=== PATIENT | male | born 1970 | race Caucasian/White ===

== ENCOUNTER 2024-05-29 15:06 | Observation (INO) | payer OTHER, SELFPAY ==
[2024-05-29] VITALS (15 sets, daily range): BP systolic 103–153; BP diastolic 59–104; PULSE 60–66; RESP 12–25; TEMP 36.5–36.6; O2SAT 95–100; BMI 33.1
--- NOTE | 2024-05-29 16:09 | CT_ITS ---
STUDY: CT ABDOMEN AND PELVIS WITH CONTRAST REASON FOR EXAM: Male, 53 years old. abd pain RADIATION DOSAGE (If Supplied By Facility): CTDIvol = ( 19.94 ) mGy, DLP = ( 1304.67 ) mGycm TECHNIQUE: Transaxial images were obtained from the dome of the diaphragm to the symphysis pubis without oral contrast. IV 100mL Isovue-370 was administered. Sagittal and coronal images were reconstructed. Individualized dose optimization techniques were used for this CT. The protocol utilizes one or more of the following dose reduction techniques: automated exposure control, adjustment of mA and/or kV according to patient size,and/or use of iterative reconstruction technique. COMPARISON: None. FINDINGS: The visualized lung bases are unremarkable. The visualized portions of the heart are within normal limits. Normal liver. Normal gallbladder and extrahepatic biliary system. Normal spleen. Normal pancreas. Normal bilateral adrenal glands. Multiple simple right renal cysts measuring up to 2.6 cm on the right. No further follow-up required as appears simple/benign. Normal left kidney. Moderate hiatal hernia. Multiple air-fluid levels throughout the small bowel. Increased stool throughout the colon. The appendix is visualized and appears normal. Normal abdominal aorta. Normal inferior vena cava. Normal retroperitoneum. Normal urinary bladder. [Arthroplasty causing local beam hardening artifact and image degradation. Normal abdominal wall. Normal osseous structures. CT/Abdomen/Pelvis W IV Cont ONLY IMPRESSION: Ileus. Increase stool. Moderate hiatal hernia. Electronically Signed: Pierre Camargo MD at 17:31 EST ,
[2024-05-29] MEDS: Ondansetron 4 MG/2 ML Vial IV (16:27)
[2024-05-29] MEDS: morphine 8 MG/ML Syringe 6 MG IV (16:27)
[2024-05-29] MEDS: 0.9% Normal Saline (1000mL) 1,000 ML 999 ML IV (16:32)
[2024-05-29 16:44] LABS: Absolute Lymphocyte Count 1.63 X10^3/uL (0.83-4.51); Absolute Neutrophil Count 8.8 X10^3/uL (2.0-7.7); Basophil# 0.05 X10^3/uL; Basophil% 0.5 % (0-1); Eosinophil# 0.01 X10^3/uL; Eosinophils% 0.1 % (0-5); Hematocrit 38.8 % (40-54); Hemoglobin 12.9 g/dL (13.0-16.5); Lymphocyte # 1.63 X10^3/ul (0.83-4.51); Lymphocyte % 14.7 % (19-41); Mean Corp Hgb Conc 33.2 g/dL (32-36); Mean Corpuscular Hgb 27.2 pg (27.0-32.0); Mean Corpuscular Volume 81.9 fL (80-94); Mean Platelet Vol. 9.4 fl (6.2-12.0); Monocyte# 0.58 X10^3/uL; Monocyte% 5.2 % (0-10); NRBC Flagged by Analyzer 0 % (0-5); Neutrophil % 79.3 % (47-70); Platelet Count 328 K/mm3 (150-450); RBC Distribution Width CV 13.7 % (11.6-14.6); RBC Distribution Width SD 40.1 fl (35.1-43.9); Red Blood Count 4.74 M/mm3 (4.6-6.2); White Blood Count 11.1 K/mm3 (4.4-11.0)
[2024-05-29 17:01] LABS: ALB/GLOB Ratio 1.1 RATIO (0.9-2.4); AST(SGOT) 22 U/L (15-37); Alanine Aminotransfer ALT/SGPT 32 U/L (16-61); Albumin, Serum 4.1 g/dL (3.2-5.0); Alkaline Phosphatase 93 U/L (45-117); Anion Gap 12 (5-15); BUN 16 mg/dL (7-18); BUN/Creat Ratio 16.3 RATIO (10-20); Calcium,Total 9.1 mg/dL (8.5-10.1); Chloride 103 mmol/L (98-107); Creatinine, Serum 0.98 mg/dL (0.70-1.30); EST Glomerular Filtration Rate 85 mL/min (>60); Est Glom Filt Rate - Afr Amer 103 mL/min (>60); Globulin 3.9 g/dL (2.2-4.2); Glucose 108 mg/dL (74-106); Lipase 48 U/L (13-75); Potassium 3.5 mmol/L (3.5-5.1); Sodium Level 135 mmol/L (136-145)
[2024-05-29 17:09] LABS: Lactic Acid 1.7 mmol/L (0.4-1.9)
--- NOTE | 2024-05-29 17:16 | EX.ED.DYSGE1 ---
HPI History of Present Illness Chief Complaint: Flank Pain Informant: patient Narrative Narrative: Patient is a 53-year-old male presenting with worsening abdominal pain. 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 He then tried to walk it off and went to work. He was okay for couple hours which is more of a mild pain but then the pain started to move more to his abdomen and significantly worsened. He is not having severe diffuse abdominal cramping and not so much having this flank pain. He has associated nausea with chills. Did try taking ibuprofen with no significant relief. Does not report a history of constipation that is chronic and unchanged. His last bowel movement was about 3 days ago. Denies any history of diverticulitis or kidney stones. Denies any associated chest pain or shortness of breath. Denies any fevers. Denies any radiation of pain into his legs, back or groin/testicles. Denies any urinary symptoms. Denies any history of anything like this before. Does have a history of a ventral hernia repair laparoscopic. PFSH [facility] Home Medications ?Medication ?Instructions ?Recorded ?Last Taken ?Type NK 05/29/24 Unknown History Allergy/AdvReac Type Severity Reaction Status Date / Time No Known Allergies Allergy Verified 05/29/24 17:19 Surgical History History of hip replacement History of hernia surgery Social History Smoking Status: Never smoker ROS [facility] ED Constitutional Constitutional ED: Reports sweats; Denies chills or fever(s) ENT ENT ED: Reports rhinorrhea and sore throat Cardiovascular Cardiovascular: Denies chest pain Respiratory/Chest Respiratory/Chest: Reports cough Gastrointestinal Gastrointestinal: Denies diarrhea or vomiting Neurologic Neurologic: Denies headache(s) EXAM Physical Exam Const Vital Signs: 05/29/24 15:06 05/29/24 17:12 05/29/24 17:30 Temperature 97.7 F L Temperature Source Temporal Pulse Rate 61 63 66 Respiratory Rate 16 22 H 15 Blood Pressure 134/59 H 130/88 H Blood Pressure Mean 84 101 Pulse Ox 100 100 100 Oxygen Delivery Method Room Air Room Air 05/29/24 18:00 05/29/24 18:15 05/29/24 18:30 Temperature Temperature Source Pulse Rate 66 60 64 Respiratory Rate 25 H 12 20 H Blood Pressure 130/66 H 153/102 H 139/70 H Blood Pressure Mean 86 116 91 Pulse Ox 100 Oxygen Delivery Method 05/29/24 18:45 05/29/24 19:00 05/29/24 19:15 Temperature Temperature Source Pulse Rate 64 64 63 Respiratory Rate 14 18 22 H Blood Pressure 137/85 H 136/86 H 135/80 H Blood Pressure Mean 99 101 95 Pulse Ox 96 Oxygen Delivery Method 05/29/24 19:30 05/29/24 19:45 05/29/24 21:00 Temperature Temperature Source Pulse Rate 65 62 64 Respiratory Rate 15 20 H 17 Blood Pressure 119/69 123/104 H 107/60 Blood Pressure Mean 76 112 75 Pulse Ox 98 Oxygen Delivery Method 05/29/24 22:00 05/29/24 23:00 Temperature Temperature Source Pulse Rate 60 63 Respiratory Rate 17 16 Blood Pressure 103/67 113/71 Blood Pressure Mean 79 85 Pulse Ox 95 98 Oxygen Delivery Method Positive well nourished and well developed General Appearance ED: well developed and NAD HEENT Reports TM's clear and moist mucous membranes Tympanic Membrane ED: Yes TM's clear Neck supple Resp normal respiratory effort and clear to auscultation bilaterally Cardio regular rate and regular rhythm GI GI Narrative: Mildly distended abdomen. Nonperitoneal. Pain does not localize. Pain is out of proportion to exam. No pulsatile mass appreciated. Auscultation: hypoactive bowel sounds Back/Spine no CVA tenderness Extremity normal to inspection Extremity Narrative: 2+ DP pulses. 2+ radial pulses. General Extremety ED: Negative for edema General Extremity: Negative for edema Neuro oriented x3 Sensorium / Orientation: alert Motor Exam: Negative for general weakness Psych mental status grossly normal Mood & Affect: anxious Skin no rashes or lesions noted and no wounds MDM MDM MDM Narrative Medical decision making narrative: Patient is evaluated for abdominal pain. Initially had some left-sided flank pain but then localized to the abdomen. Differential includes SBO, renal colic, diverticulitis, musculoskeletal pain, AAA, ischemic colitis, illness and volvulus. Vital signs normal the emergency room. Patient initially is given 6 mg IV morphine and 4 mg IV Zofran as well as fluids for symptoms. Lab including CBC, CMP, lipase, urinalysis and lactate largely normal. He has a mild leukocytosis of 11.1 but no shift. Kidney function is normal. Urinalysis is not consistent with infection. Lipase is normal. CT of the abdomen pelvis shows ileus with increased stool and multiple air-fluid levels throughout the small bowel. Case discussed with surgeon on-call, Dr. Dominguez. He reviewed the films. Questions if there could be a focal area of colitis and sigmoid colon. Recommended repeat CT with oral contrast. Patient did require repeat pain medication with morphine 8 mg and further nausea medicine (is given Compazine). Continues to have pain is then given 1 mg Dilaudid, simethicone and Bentyl. He finally has improvement of his symptoms. Repeat CT continues to show an ileus. No comment on colitis again. Patient is afebrile in the emergency room. Would be admitted for further evaluation of ileus and bowel regiment. Is offered enema in the emergency room but declined. I will be made the medicine with consult to surgery. ON repeat exam is now pain free and resting. Lab Data Attestation: I reviewed the patient's lab results. Labs: Laboratory Results - last 24 hr 05/29/24 05/29/24 16:28 18:09 WBC 11.1 H RBC 4.74 Hgb 12.9 L Hct 38.8 L MCV 81.9 MCH 27.2 MCHC 33.2 RDW Std Deviation 40.1 RDW Coeff of Shraddha 13.7 Plt Count 328 MPV 9.4 Immature Gran % (Auto) 0.200 Neut % (Auto) 79.3 H Lymph % (Auto) 14.7 L [place] % (Auto) 5.2 Eos % (Auto) 0.1 Baso % (Auto) 0.5 Absolute Neuts (auto) 8.8 H Absolute Lymphs (auto) 1.63 Nucleated RBC % 0 Sodium 135 L Potassium 3.5 Chloride 103 Carbon Dioxide 20.0 L Anion Gap 12 BUN 16 Creatinine 0.98 Est GFR (MDRD) Af Amer 103 Est GFR (MDRD) Non-Af 85 BUN/Creatinine Ratio 16.3 Glucose 108 H Lactic Acid 1.7 Calcium 9.1 Total Bilirubin 0.40 AST 22 ALT 32 Alkaline Phosphatase 93 Total Protein 8.0 Albumin 4.1 Globulin 3.9 Albumin/Globulin Ratio 1.1 Lipase 48 Urine Color Yellow Urine Clarity Clear Urine pH 7.0 Ur Specific [place] 1.005 Urine Protein 15 H Urine Glucose (UA) Normal Urine Ketones 15 H Urine Occult Blood 10 H Urine Nitrite Negative Urine Bilirubin Negative Urine Urobilinogen Normal Ur Leukocyte Esterase Negative Urine RBC 0-5 SEEN Urine WBC 0 SEEN Ur Squamous Epith Cells 0 SEEN Urine Bacteria 0 SEEN Urine Mucus 1+ Radiography Diagnostic Testing: Clinical Impression(s) from Imaging Studies Abdomen/Pelvis CT 05/29/24 16:09 IMPRESSION: Ileus. Increase stool. Moderate hiatal hernia. Electronically Signed: Pierre Camargo MD at 17:31 EST Reading Location ID and State: [address] [place] [address] Tel , Service support , Abdomen CT 05/29/24 19:04 IMPRESSION: Ileus. Increase stool in the colon. 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
[2024-05-29] MEDS: proCHLORPERazine 10 MG/2 ML Vial 5 MG IV (17:24)
[2024-05-29] MEDS: morphine 8 MG/ML Syringe IV (17:25)
[2024-05-29 18:13] LABS: Bacteria 0 SEEN /hpf (None Seen); Squamous Epithelial Cells - UA 0 SEEN /hpf (0-5); White Blood Cells 0 SEEN /hpf (0-5)
[2024-05-29 18:25] LABS: Color, Urine Yellow (Yellow); Glucose, Dipstick Normal (Normal); Ketone-Dipstick 15 mg/dl (Negative); Leukocyte Esterase-Dipstick Negative /ul (Negative); Nitrite-Dipstick Negative (Negative); Occult Blood-Urine 10 /ul (Negative); Protein-Dipstick 15 mg/dl (Negative); Specific Gravity, Urine 1.005 (1.002-1.030); Urine Bilirubin Dipstick Negative (Negative); Urine Clarity Clear (Clear); Urine Urobilinogen Normal (Normal)
[2024-05-29] MEDS: Dicyclomine 10 MG Capsule 20 MG PO (18:42)
[2024-05-29] MEDS: HYDROmorphone 1 MG/ML Syringe IV (18:42)
[2024-05-29 18:49] LABS: Mucous, Urine 1+ /hpf (<or=2+); Red Blood Cells-Urine 0-5 SEEN /hpf (0-5)
--- NOTE | 2024-05-29 19:04 | CT_ITS ---
STUDY: CT ABDOMEN AND PELVIS WITHOUT CONTRAST REASON FOR EXAM: Male, 53 years old. ? ilius vs colitis sigmoid RADIATION DOSAGE (If Supplied By Facility): CTDIvol = ( 15.02 ) mGy, DLP = ( 923.13 ) mGycm TECHNIQUE: Transaxial images were obtained from the dome of the diaphragm to the symphysis pubis without oral contrast, and without intravenous contrast. Sagittal and coronal images were reconstructed. Individualized dose optimization techniques were used for this CT. The protocol utilizes one or more of the following dose reduction techniques: automated exposure control, adjustment of mA and/or kV according to patient size,and/or use of iterative reconstruction technique. COMPARISON: CT abdomen and pelvis 05/29/2024 4:43 PM today FINDINGS: The visualized lung bases are unremarkable. Calcific coronary artery disease. Normal liver. Normal gallbladder and extrahepatic biliary system. Normal spleen. Normal pancreas. Normal bilateral adrenal glands. Normal right kidney. Normal left kidney. Bilateral contrast noted in the collecting systems. Oral contrast noted in the stomach. Small hiatal hernia. Oral contrast noted in the proximal small bowel. Air-fluid levels noted distally. Increased stool throughout the colon. The appendix is visualized and appears normal. Normal abdominal aorta. Normal inferior vena cava. Normal retroperitoneum. Urinary bladder is not filled with intravenous contrast. Anterior abdominal wall mesh periumbilical region and fat-containing umbilical hernia. Right total hip arthroplasty. CT/Abdomen/Pel W ORAL Cont Only IMPRESSION: Ileus. Increase stool in the colon. Electronically Signed: Pierre Camargo MD at 22:28 EST ,
[2024-05-29] MEDS: SimETHICONE 80 MG Chewable Tablet PO (19:59)
--- NOTE | 2024-05-29 23:04 | HP.PCM.HOS_ITS ---
HPI - General General Date of Admission: 05/29/24 Date of Service: 05/29/24 Chief Complaint: Abdominal pain, cramping. 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 He did have nausea previous to ED presentation but upon evaluation he did note while in the ED had 1 bout of emesis. He does note decreased flatus over the last day or so. In the ED upon evaluation patient notes he is feeling improved with abdomen soft and no tenderness to palpation of note. Workup in the ED included T97.7, heart rate 61, BP 134/59, respiratory rate 16, 100% on room air with most recent repeat vitals heart rate 64, BP 107/60, respiratory rate 17, 98% on room air, CBC with WC 11.1, hemoglobin 12.9, MCV 81.9, platelet 328 with left shift, CMP with sodium 135, come back side 20 otherwise not marked appearing, glucose 108, lactic acid 1.7, hepatic profile unremarkable, urinalysis with no obvious evidence of any UTI, CT abdomen and pelvis with contrast with evidence of AV ileus with increased stool and evidence of a moderate hiatal hernia with follow-up abdominal CT without contrast with increased on the colon and evidence of ileus. In the ED patient administered simethicone, prochlorperazine, Zofran, morphine 8 mg x 1, morphine 6 mg x 2, Dilaudid 1 mg IV x 1, dicyclomine 20 mg p.o. x 1 and 1 L normal saline. [facility] Medical History Obesity Chronic constipation Home Medications ?Medication ?Instructions ?Recorded ?Last Taken ?Type NK 05/29/24 Unknown History Allergy/AdvReac Type Severity Reaction Status Date / Time No Known Allergies Allergy Verified 05/29/24 17:19 Family History Mother Heart disease Kidney disease Father Heart disease Kidney disease adopted Surgical History H/O umbilical hernia repair History of inguinal hernia repair History of total replacement of right hip History of hip replacement History of hernia surgery Social History household members: spouse Smoking Status: Never smoker alcohol intake: never substance use type: does not use ROS ROS Narrative Admission Review of Systems: CONSTITUTIONAL: No weight loss, fever, chills, + weakness or fatigue. HEENT: Eyes: No visual loss, blurred vision, double vision or yellow sclerae. Ears, Nose, Throat: No hearing loss, sneezing, congestion, runny nose or sore throat. SKIN: No rash or itching, lesions, wounds. CARDIOVASCULAR: No chest pain, chest pressure or chest discomfort, palpitations, edema, orthopnea, syncopal events. RESPIRATORY: No shortness of breath, cough or sputum, wheezing, hemoptysis. GASTROINTESTINAL: + anorexia, nausea, vomiting, constipation, abdominal pain. No diarrhea, melena, BRBPR. GENITOURINARY: No dysuria, frequency, urgency or retention. NEUROLOGICAL: No headache, dizziness, syncope, paralysis, ataxia, numbness or tingling in the extremities, focal weakness, change in bowel or bladder control, seizure. MUSCULOSKELETAL: + muscle, back pain, joint pain or stiffness. HEMATOLOGIC: + Lab evidence of anemia, unclear chronicity. No history of easy bleeding or bruising. LYMPHATICS: No enlarged nodes. No history of splenectomy. PSYCHIATRIC: No history of depression or anxiety. ENDOCRINOLOGIC: No reports of sweating, cold or heat intolerance. No polyuria or polydipsia. ALLERGIES: No history of asthma, hives, eczema or rhinitis. Vital Signs Vital Signs Vital Signs: 05/29/24 15:06 05/29/24 17:12 05/29/24 17:30 Temperature 97.7 F L Temperature Source Temporal Pulse Rate 61 63 66 Respiratory Rate 16 22 H 15 Blood Pressure 134/59 H 130/88 H Blood Pressure Mean 84 101 Pulse Ox 100 100 100 Oxygen Delivery Method Room Air Room Air 05/29/24 18:00 05/29/24 18:15 05/29/24 18:30 Temperature Temperature Source Pulse Rate 66 60 64 Respiratory Rate 25 H 12 20 H Blood Pressure 130/66 H 153/102 H 139/70 H Blood Pressure Mean 86 116 91 Pulse Ox 100 Oxygen Delivery Method 05/29/24 18:45 05/29/24 19:00 05/29/24 19:15 Temperature Temperature Source Pulse Rate 64 64 63 Respiratory Rate 14 18 22 H Blood Pressure 137/85 H 136/86 H 135/80 H Blood Pressure Mean 99 101 95 Pulse Ox 96 Oxygen Delivery Method 05/29/24 19:30 05/29/24 19:45 05/29/24 21:00 Temperature Temperature Source Pulse Rate 65 62 64 Respiratory Rate 15 20 H 17 Blood Pressure 119/69 123/104 H 107/60 Blood Pressure Mean 76 112 75 Pulse Ox 98 Oxygen Delivery Method 05/29/24 22:00 05/29/24 23:00 Temperature Temperature Source Pulse Rate 60 63 Respiratory Rate 17 16 Blood Pressure 103/67 113/71 Blood Pressure Mean 79 85 Pulse Ox 95 98 Oxygen Delivery Method Weight Weight: 224 lb 6.889 oz Body Mass Index (BMI) 33.1 Physical Exam Narrative Physical Examination: General: Awake, alert, oriented x 3 and cooperative, laying in the ED bed, notes feeling improved since initial ED arrival, denies any pain currently. Skin: Normal color, normal turgor, no icterus, no cyanosis. HEENT: AT/NC, EOMI, PERRLA, moderately dry MM, no carotid bruits or JVD noted. Lungs: CTA bilaterally, moderate effort, mild decrease BL bases, no rales, ronchi or wheezing. Heart: Regular rate and rhythm; no gallop, rub audible. Abdomen: Soft, obese, NTTP, ND, hyperactive BS, no appreciated HSM. Extremities: No cyanosis, clubbing, or edema. Neurological: Patient awake, alert, oriented as noted, cognitive function intact; pupils equally reactive to light and accommodation, cranial nerves II- XII grossly normal, moving all 4 extremities, no focal deficits, strength improved given pain improvement, mildly global decrease Psychiatric: Affect appears fatigued otherwise normal, no acute evidence of depressive or anxiety feelings. Results Lab / Micro Data 05/29/24 16:28 05/29/24 16:28 Labs: Laboratory Results - last 24 hr 05/29/24 16:28: WBC 11.1 H, RBC 4.74, Hgb 12.9 L, Hct 38.8 L, MCV 81.9, MCH 27.2, MCHC 33.2, RDW Std Deviation 40.1, RDW Coeff of Shraddha 13.7, Plt Count 328, MPV 9.4, Immature Gran % (Auto) 0.200, Neut % (Auto) 79.3 H, Lymph % (Auto) 14.7 L, [place] % (Auto) 5.2, Eos % (Auto) 0.1, Baso % (Auto) 0.5, Absolute Neuts (auto) 8.8 H, Absolute Lymphs (auto) 1.63, Nucleated RBC % 0, Sodium 135 L, Potassium 3.5, Chloride 103, Carbon Dioxide 20.0 L, Anion Gap 12, BUN 16, Creatinine 0.98, Est GFR (MDRD) Af Amer 103, Est GFR (MDRD) Non-Af 85, BUN/Creatinine Ratio 16.3, Glucose 108 H, Lactic Acid 1.7, Calcium 9.1, Total Bilirubin 0.40, AST 22, ALT 32, Alkaline Phosphatase 93, Total Protein 8.0, Albumin 4.1, Globulin 3.9, Albumin/Globulin Ratio 1.1, Lipase 48 05/29/24 18:09: Urine Color Yellow, Urine Clarity Clear, Urine pH 7.0, Ur Specific [place] 1.005, Urine Protein 15 H, Urine Glucose (UA) Normal, Urine Ketones 15 H, Urine Occult Blood 10 H, Urine Nitrite Negative, Urine Bilirubin Negative, Urine Urobilinogen Normal, Ur Leukocyte Esterase Negative, Urine RBC 0-5 SEEN, Urine WBC 0 SEEN, Ur Squamous Epith Cells 0 SEEN, Urine Bacteria 0 SEEN, Urine Mucus 1+ Imaging Radiology Impression Abdomen/Pelvis CT 05/29/24 16:09 IMPRESSION: Ileus. Increase stool. Moderate hiatal hernia. Electronically Signed: Pierre Camargo MD at 17:31 EST , Abdomen CT 05/29/24 19:04 IMPRESSION: Ileus. Increase stool in the colon. 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 #1. Abdominal pain, nausea, emesis, possible ileus complicated by acute on chronic constipation: CT abdomen pelvis in the ED with no acute findings. ED discussed case with general surgery Dr. Dominguez given pain out of proportion and ongoing discomfort. Will admit to [facility], maintain on IVFs, following discussion and patient preference to avoid any enemas will initiate on bowel prep regimen, monitor strict I&Os, scheduled Bentyl, low-dose scheduled Toradol x 5 doses, oral/IV narcotic pain for breakthrough pain/anti-emetics PRN, maintain on IV PPI, allow clear liquids only until clinically improving, will continue general surgery consultation to be cautious. Procalcitonin requested. #2. Hyponatremia, mild, suspect hypovolemic component: Admission CMP with sodium 135, chloride 103, likely secondary to GI losses and poor intake over the course of the day given acute presentation #1, will judiciously hydrate and repeat CMP in AM. #3. Normocytic anemia: Admission hemoglobin 12.9, MCV 81.9, no previous reported history, will encourage continued outpatient follow-up and evaluation. #4. DVT prophylaxis: Low risk for type of presentation, encourage patient to be up and ambulating especially given #1. Charges/Coding Visit Charges Inpatient E&M: 58583 Init Hosp L2
[2024-05-30 00:08] LABS: Procalcitonin 0.06 ng/mL (0.00-0.09)
[2024-05-30 00:12] VITALS: BMI 32.1
[2024-05-30 00:15] VITALS: BP 114/74; PULSE 66; RESP 16; TEMP 36.9; O2SAT 95
[2024-05-30] MEDS: 0.9% Normal Saline (1000mL) 1,000 ML 100 ML IV (00:50)
[2024-05-30] MEDS: 0.9% Saline Lock 10 ML Syringe IV ×2 (00:50→01:09)
[2024-05-30] MEDS: Ketorolac 15 MG/ML Vial IV ×3 (01:09→13:55)
[2024-05-30] MEDS: Pantoprazole Sodium 40 MG in 0.9% Normal Saline (100mL MB+) 100 ML 330 MG IV ×2 (01:10→10:17)
[2024-05-30] MEDS: Bisacodyl 5 MG Tablet 20 MG PO (01:12)
[2024-05-30] MEDS: Polyethylene Glycol 3350 BOWEL PREP 1 BOTTLE PO (03:21)
[2024-05-30 05:16] VITALS: BMI 32.8
[2024-05-30 06:01] LABS: Absolute Lymphocyte Count 1.63 X10^3/uL (0.83-4.51); Absolute Neutrophil Count 5.8 X10^3/uL (2.0-7.7); Basophil# 0.03 X10^3/uL; Basophil% 0.4 % (0-1); Eosinophil# 0.01 X10^3/uL; Eosinophils% 0.1 % (0-5); Hematocrit 35.6 % (40-54); Hemoglobin 11.6 g/dL (13.0-16.5); Lymphocyte # 1.63 X10^3/ul (0.83-4.51); Mean Corp Hgb Conc 32.6 g/dL (32-36); Mean Corpuscular Volume 82.8 fL (80-94); Mean Platelet Vol. 9.4 fl (6.2-12.0); Monocyte# 0.63 X10^3/uL; Monocyte% 7.7 % (0-10); NRBC Flagged by Analyzer 0 % (0-5); Neutrophil # 5.83 X10^3/uL (2.7-7.7); Neutrophil % 71.3 % (47-70); Platelet Count 318 K/mm3 (150-450); RBC Distribution Width CV 13.8 % (11.6-14.6); RBC Distribution Width SD 41.3 fl (35.1-43.9); White Blood Count 8.2 K/mm3 (4.4-11.0)
[2024-05-30 06:26] VITALS: BP 118/63; PULSE 53; RESP 18; TEMP 36.6; O2SAT 96
[2024-05-30] MEDS: Dicyclomine 10 MG Capsule 20 MG PO ×2 (06:38→10:17)
[2024-05-30 06:51] LABS: ALB/GLOB Ratio 0.9 RATIO (0.9-2.4); AST(SGOT) 18 U/L (15-37); Alanine Aminotransfer ALT/SGPT 26 U/L (16-61); Albumin, Serum 3.1 g/dL (3.2-5.0); Alkaline Phosphatase 78 U/L (45-117); Anion Gap 7 (5-15); BUN 13 mg/dL (7-18); BUN/Creat Ratio 17.2 RATIO (10-20); Chloride 107 mmol/L (98-107); Creatinine, Serum 0.76 mg/dL (0.70-1.30); EST Glomerular Filtration Rate 115 mL/min (>60); Est Glom Filt Rate - Afr Amer 139 mL/min (>60); Estimated Creatinine Clearance 134.44 ml/min; Globulin 3.5 g/dL (2.2-4.2); Glucose 101 mg/dL (74-106); Potassium 3.6 mmol/L (3.5-5.1); Protein, Total 6.6 g/dL (6.4-8.2); Sodium Level 137 mmol/L (136-145)
--- NOTE | 2024-05-30 07:49 | EX.PCM.CON.S ---
Assessment & Plan Assessment/Plan (1) Constipation: QUALIFIERS: Constipation type: slow transit constipation Qualified Code(s): K59.01 - Slow transit constipation PLAN: I have been consulted in conjunction with Dr. Dominguez. He has independently evaluated this patient. Patient presents with a 1 day history of acute onset of abdominal pain, nausea, vomiting, fever/chills. He notes receiving pain medication in the ED, which has helped with his abdominal pain. He denies any abdominal pain upon evaluation this morning. He denies any nausea, vomiting. Patient denies passing flatus or having bowel movement. It is noted that patient has a redundant sigmoid colon. This is likely from his history of constipation. Patient has been given a bottle of Miralax to assist with bowel function. Await bowel function. Patient may follow-up with Dr. Dominguez as an outpatient in 1-2 weeks from discharge to discuss a colonoscopy. It is recommended that the patient start a daily Miralax regimen to assist with constipation. Patient has had the opportunity to ask and have questions answered. Patient verbally understands and agrees with the plan. Thank you for allowing us to participate in this patient's care. HPI Consult Data Date of Consult: 05/30/24 HPI Narrative Reason for Consultation: Constipation HPI Narrative: INES BECERRIL, is a 53 M who presents with a 1 day history of worsening abdominal pain, nausea and vomiting. Patient notes a chronic history of constipation. He notes he was at work yesterday and bent over to tie his shoe and experienced severe abdominal pain. He was concerned that something may have ruptured and prompted him to proceed to the ED. He was also noting chills and fever. He denies being around any sick contacts. Patient notes his bowel habits are abnormal. He notes having a bowel movement on average twice a week. He states he takes an herbal laxative to assist with bowel movements. He notes his bowel habit changes are associated with an herbal drink he had started to help curb the alcohol cravings. He no longer consumes alcohol. He states he has never had a colonoscopy previously. He notes being adopted, however he states he has no family history of inflammatory bowel disease or diverticulitis. He notes abdominal surgeries have been umbilical hernia repair and right groin inguina hernias x 2. He is unsure when the hernia repairs were completed and who performed the procedures. CT scan of the ab/pel was obtained demonstrating an ileus. Increased stool in the colon. Hiatal hernia. Fat-containing umbilical hernia. No acute abnormalities noted. [facility] Medical History Obesity Chronic constipation Home Medications ?Medication ?Instructions ?Recorded ?Last Taken ?Type atorvastatin 40 mg tablet 40 mg PO DAILY 05/30/24 Unknown History bupropion HCl 150 mg 24 hr tablet, 150 mg PO 1XD 05/30/24 Unknown History extended release sertraline 50 mg tablet 75 mg PO DAILY 05/30/24 Unknown History Allergy/AdvReac Type Severity Reaction Status Date / Time No Known Allergies Allergy Verified 05/29/24 17:19 Family History Mother Heart disease Kidney disease Father Heart disease Kidney disease Surgical History H/O umbilical hernia repair History of inguinal hernia repair History of total replacement of right hip History of hip replacement History of hernia surgery Social History household members: spouse Smoking Status: Never smoker alcohol intake: never substance use type: does not use ROS Constitutional Constitutional: Reports systems reviewed and no addt'l complaints, except as documented Eyes Eyes: Reports systems reviewed and no addt'l complaints, except as documented ENT HEENT: Reports systems reviewed and no addt'l complaints, except as documented Cardiovascular Cardiovascular: Reports systems reviewed and no addt'l complaints, except as documented Respiratory/Chest Respiratory/Chest: Reports systems reviewed and no addt'l complaints, except as documented Gastrointestinal Gastrointestinal: Reports systems reviewed and no addt'l complaints, except as documented Genitourinary Genitourinary: Reports systems reviewed and no addt'l complaints, except as documented Musculoskeletal Musculoskeletal: Reports systems reviewed and no addt'l complaints, except as documented Integumentary Integumentary: Reports systems reviewed and no addt'l complaints, except as documented Neurologic Neurologic: Reports systems reviewed and no addt'l complaints, except as documented Psychiatric Psychiatric: Reports systems reviewed and no addt'l complaints, except as documented Endocrine Endocrinology: Reports systems reviewed and no addt'l complaints, except as documented Hematologic/Lymphatic Hematologic/Lymphatic: Reports systems reviewed and no addt'l complaints, except as documented Allergic/Immunologic Allergic/Immunologic: Reports systems reviewed and no addt'l complaints, except as documented Physical Exam Const alert, oriented x3 and no apparent distress HEENT normocephalic and head/scalp atraumatic Eyes PERRL Neck full ROM Resp normal respiratory effort and clear to auscultation bilaterally Cardio regular rate and regular rhythm GI normal to inspection, nondistended, normoactive bowel sounds no CVA tenderness Back/Spine no CVA tenderness Extremity normal to inspection Skin no rashes or lesions noted Neuro no focal motor deficits and no sensory deficits noted Psych mental status grossly normal and thought process normal Lab / Micro Data 05/30/24 05:06 05/30/24 05:06 Labs: Laboratory Results - last 24 hr 05/29/24 16:28: WBC 11.1 H, RBC 4.74, Hgb 12.9 L, Hct 38.8 L, MCV 81.9, MCH 27.2, MCHC 33.2, RDW Std Deviation 40.1, RDW Coeff of [place]raddha 13.7, Plt Count 328, MPV 9.4, Immature Gran % (Auto) 0.200, Neut % (Auto) 79.3 H, Lymph % (Auto) 14.7 L, [place] % (Auto) 5.2, Eos % (Auto) 0.1, Baso % (Auto) 0.5, Absolute Neuts (auto) 8.8 H, Absolute Lymphs (auto) 1.63, Nucleated RBC % 0, Sodium 135 L, Potassium 3.5, Chloride 103, Carbon Dioxide 20.0 L, Anion Gap 12, BUN 16, Creatinine 0.98, Est GFR (MDRD) Af Amer 103, Est GFR (MDRD) Non-Af 85, BUN/Creatinine Ratio 16.3, Glucose 108 H, Lactic Acid 1.7, Calcium 9.1, Total Bilirubin 0.40, AST 22, ALT 32, Alkaline Phosphatase 93, Total Protein 8.0, Albumin 4.1, Globulin 3.9, Albumin/Globulin Ratio 1.1, Lipase 48 05/29/24 18:09: Urine Color Yellow, Urine Clarity Clear, Urine pH 7.0, Ur Specific [place] 1.005, Urine Protein 15 H, Urine Glucose (UA) Normal, Urine Ketones 15 H, Urine Occult Blood 10 H, Urine Nitrite Negative, Urine Bilirubin Negative, Urine Urobilinogen Normal, Ur Leukocyte Esterase Negative, Urine RBC 0-5 SEEN, Urine WBC 0 SEEN, Ur Squamous Epith Cells 0 SEEN, Urine Bacteria 0 SEEN, Urine Mucus 1+ 05/29/24 23:36: Procalcitonin 0.06 05/30/24 05:06: WBC 8.2, RBC 4.30 L, Hgb 11.6 L, Hct 35.6 L, MCV 82.8, MCH 27.0, MCHC 32.6, RDW Std Deviation 41.3, RDW Coeff of [place] 13.8, Plt Count 318, MPV 9.4, Immature Gran % (Auto) 0.500, Neut % (Auto) 71.3 H, Lymph % (Auto) 20.0, [place] % (Auto) 7.7, Eos % (Auto) 0.1, Baso % (Auto) 0.4, Absolute Neuts (auto) 5.8, Absolute Lymphs (auto) 1.63, Nucleated RBC % 0, Sodium 137, Potassium 3.6, Chloride 107, Carbon Dioxide 23.0, Anion Gap 7, BUN 13, Creatinine 0.76, Estim Creat Clear Calc 134.44, Est GFR (MDRD) Af Amer 139, Est GFR (MDRD) Non-Af 115, BUN/Creatinine Ratio 17.2, Glucose 101, Calcium 8.0 L, Total Bilirubin 0.40, AST 18, ALT 26, Alkaline Phosphatase 78, Total Protein 6.6, Albumin 3.1 L, Globulin 3.5, Albumin/Globulin Ratio 0.9 Imaging Radiology Impression Abdomen/Pelvis CT 05/29/24 16:09 IMPRESSION: Ileus. Increase stool. Moderate hiatal hernia. Electronically Signed: Pierre Camargo MD at 17:31 EST Reading Location ID and State: [address] [place] [address] Tel , Service support , Abdomen CT 05/29/24 19:04 IMPRESSION: Ileus. Increase stool in the colon. Electronically Signed: Pierre Camargo MD at 22:28 EST Reading Location ID and State: [address] [place] [address] Tel , Service support , Charges/Coding Visit Charges Inpatient E&M: 22609 Init Hosp L2
--- NOTE | 2024-05-30 08:06 | PCM.PN.HOSP ---
Reason for Visit Reason for Visit: Diagnoses Ileus, unspecified (05/29/24) Unspecified abdominal pain (05/29/24) Subjective Subjective Feeling much better. No BM yet. Objective Data Objective Data Vital Signs: Vital Signs Temp Pulse Resp BP Pulse Ox O2 Del Method 36.6 C 53 L 18 118/63 96 Room Air 05/30/24 06:26 05/30/24 06:26 05/30/24 06:26 05/30/24 06:26 05/30/24 06:26 05/30/24 06:26 Oxygen Delivery Method Room Air Weight: 100.6 kg Body Mass Index (BMI) 32.8 Intake & Output: Intake and Output for Last 24 Hours 05/28/24 05/29/24 05/30/24 23:59 23:59 23:59 Intake Total 1000 / 1000 643.33 / 643.33 Output Total 500 / 500 Balance 500 / 500 643.33 / 643.33 Lab / Micro Data 05/30/24 05:06 05/30/24 05:06 Labs: Laboratory Results - last 24 hr 05/29/24 16:28: WBC 11.1 H, RBC 4.74, Hgb 12.9 L, Hct 38.8 L, MCV 81.9, MCH 27.2, MCHC 33.2, RDW Std Deviation 40.1, RDW Coeff of Shraddha 13.7, Plt Count 328, MPV 9.4, Immature Gran % (Auto) 0.200, Neut % (Auto) 79.3 H, Lymph % (Auto) 14.7 L, [place] % (Auto) 5.2, Eos % (Auto) 0.1, Baso % (Auto) 0.5, Absolute Neuts (auto) 8.8 H, Absolute Lymphs (auto) 1.63, Nucleated RBC % 0, Sodium 135 L, Potassium 3.5, Chloride 103, Carbon Dioxide 20.0 L, Anion Gap 12, BUN 16, Creatinine 0.98, Est GFR (MDRD) Af Amer 103, Est GFR (MDRD) Non-Af 85, BUN/Creatinine Ratio 16.3, Glucose 108 H, Lactic Acid 1.7, Calcium 9.1, Total Bilirubin 0.40, AST 22, ALT 32, Alkaline Phosphatase 93, Total Protein 8.0, Albumin 4.1, Globulin 3.9, Albumin/Globulin Ratio 1.1, Lipase 48 05/29/24 18:09: Urine Color Yellow, Urine Clarity Clear, Urine pH 7.0, Ur Specific [place] 1.005, Urine Protein 15 H, Urine Glucose (UA) Normal, Urine Ketones 15 H, Urine Occult Blood 10 H, Urine Nitrite Negative, Urine Bilirubin Negative, Urine Urobilinogen Normal, Ur Leukocyte Esterase Negative, Urine RBC 0-5 SEEN, Urine WBC 0 SEEN, Ur Squamous Epith Cells 0 SEEN, Urine Bacteria 0 SEEN, Urine Mucus 1+ 05/29/24 23:36: Procalcitonin 0.06 05/30/24 05:06: WBC 8.2, RBC 4.30 L, Hgb 11.6 L, Hct 35.6 L, MCV 82.8, MCH 27.0, MCHC 32.6, RDW Std Deviation 41.3, RDW Coeff of [place]raddha 13.8, Plt Count 318, MPV 9.4, Immature Gran % (Auto) 0.500, Neut % (Auto) 71.3 H, Lymph % (Auto) 20.0, [place] % (Auto) 7.7, Eos % (Auto) 0.1, Baso % (Auto) 0.4, Absolute Neuts (auto) 5.8, Absolute Lymphs (auto) 1.63, Nucleated RBC % 0, Sodium 137, Potassium 3.6, Chloride 107, Carbon Dioxide 23.0, Anion Gap 7, BUN 13, Creatinine 0.76, Estim Creat Clear Calc 134.44, Est GFR (MDRD) Af Amer 139, Est GFR (MDRD) Non-Af 115, BUN/Creatinine Ratio 17.2, Glucose 101, Calcium 8.0 L, Total Bilirubin 0.40, AST 18, ALT 26, Alkaline Phosphatase 78, Total Protein 6.6, Albumin 3.1 L, Globulin 3.5, Albumin/Globulin Ratio 0.9 Radiography Diagnostic Testing: Radiology Impression Abdomen/Pelvis CT 05/29/24 16:09 IMPRESSION: Ileus. Increase stool. Moderate hiatal hernia. Electronically Signed: Pierre Camargo MD at 17:31 EST Reading Location ID and State: [facility] / [place] Tel , Service support , Abdomen CT 05/29/24 19:04 IMPRESSION: Ileus. Increase stool in the colon. Electronically Signed: Pierre Camargo MD at 22:28 EST , Physical Exam Const alert and no apparent distress HEENT head/scalp atraumatic and moist oral mucous membranes Resp normal respiratory effort, no retractions, no use of accessory muscles and clear to auscultation bilaterally Cardio regular rate, regular rhythm, S1 normal heart sound and S2 normal heart sound GI normal to inspection, nondistended, normoactive bowel sounds, soft to palpation, non-tender and non-distended Neuro Sensorium / Orientation: awake and alert Assessment & Plan Assessment/Plan (1) Abdominal pain: (2) Ileus: PLAN: Plan Ileus/Constipation Received dulcolax, polyethylene glycol, bentyl surgery on consult. Feeling better, though no BM yet. States that he has been taking Kratom, which can cause constipation. Advised discontinuation. DVT prophylaxis: Low risk for type of presentation Charges/Coding Visit Charges Inpatient E&M: 61604 Subs Hosp L2
[2024-05-30] MEDS: Sertraline 50 MG Tablet 75 MG PO (10:17)
[2024-05-30 13:49] VITALS: BP 125/66; PULSE 60; RESP 16; TEMP 36.6; O2SAT 99
--- NOTE | 2024-05-30 13:57 | DS.PCM_ITS ---
Providers Date of Admission: 05/29/24 Primary Care Physician: Sunita Primary Care Phys Consultations 05/30/24 00:34 Consult: General Surgery Routine Consulting Provider: Shade Dominguez Reason for Consult: Adominal pain/constipation, ? colitis EMERGENT Consult: No MD Notified: Yes Date Notified: 05/29/24 Time Notified: 23:08 Method of Notification: ED Physician Initiated Reason For Visit: ABDOMINAL PAIN, CONSTIPATION/ILEUS Diagnosis Discharge Diagnosis (1) Constipation: Status: Acute Code(s): K59.00 - Constipation, unspecified Qualifiers: Constipation type: slow transit constipation Qualified Code(s): K59.01 - Slow transit constipation Plan Ileus/Constipation * Received dulcolax, polyethylene glycol, bentyl * surgery on consult. * Feeling better, though no BM yet. * States that he has been taking Kratom, which can cause constipation. Advised discontinuation. DVT prophylaxis: Low risk for type of presentation Medications at Discharge Home Medications atorvastatin 40 mg tablet 40 mg PO DAILY 05/30/24 bupropion HCl 150 mg 24 hr tablet, extended release 150 mg PO 1XD 05/30/24 sertraline 50 mg tablet 75 mg PO DAILY 05/30/24 Hospital Course Operations None Procedures None Weight / BMI Weight Weight: 100.6 kg Body Mass Index (BMI) 32.8 ABG / Lab / Microbiology Data 05/30/24 05:06 05/30/24 05:06 Laboratory: Laboratory Results - last 24 hr 05/29/24 16:28: WBC 11.1 H, RBC 4.74, Hgb 12.9 L, Hct 38.8 L, MCV 81.9, MCH 27.2, MCHC 33.2, RDW Std Deviation 40.1, RDW Coeff of Shraddha 13.7, Plt Count 328, MPV 9.4, Immature Gran % (Auto) 0.200, Neut % (Auto) 79.3 H, Lymph % (Auto) 14.7 L, [place] % (Auto) 5.2, Eos % (Auto) 0.1, Baso % (Auto) 0.5, Absolute Neuts (auto) 8.8 H, Absolute Lymphs (auto) 1.63, Nucleated RBC % 0, Sodium 135 L, Potassium 3.5, Chloride 103, Carbon Dioxide 20.0 L, Anion Gap 12, BUN 16, Creatinine 0.98, Est GFR (MDRD) Af Amer 103, Est GFR (MDRD) Non-Af 85, BUN/Creatinine Ratio 16.3, Glucose 108 H, Lactic Acid 1.7, Calcium 9.1, Total Bilirubin 0.40, AST 22, ALT 32, Alkaline Phosphatase 93, Total Protein 8.0, Albumin 4.1, Globulin 3.9, Albumin/Globulin Ratio 1.1, Lipase 48 05/29/24 18:09: Urine Color Yellow, Urine Clarity Clear, Urine pH 7.0, Ur Specific [place] 1.005, Urine Protein 15 H, Urine Glucose (UA) Normal, Urine Ketones 15 H, Urine Occult Blood 10 H, Urine Nitrite Negative, Urine Bilirubin Negative, Urine Urobilinogen Normal, Ur Leukocyte Esterase Negative, Urine RBC 0-5 SEEN, Urine WBC 0 SEEN, Ur Squamous Epith Cells 0 SEEN, Urine Bacteria 0 SEEN, Urine Mucus 1+ 05/29/24 23:36: Procalcitonin 0.06 05/30/24 05:06: WBC 8.2, RBC 4.30 L, Hgb 11.6 L, Hct 35.6 L, MCV 82.8, MCH 27.0, MCHC 32.6, RDW Std Deviation 41.3, RDW Coeff of Shraddha 13.8, Plt Count 318, MPV 9.4, Immature Gran % (Auto) 0.500, Neut % (Auto) 71.3 H, Lymph % (Auto) 20.0, [place] % (Auto) 7.7, Eos % (Auto) 0.1, Baso % (Auto) 0.4, Absolute Neuts (auto) 5.8, Absolute Lymphs (auto) 1.63, Nucleated RBC % 0, Sodium 137, Potassium 3.6, Chloride 107, Carbon Dioxide 23.0, Anion Gap 7, BUN 13, Creatinine 0.76, Estim Creat Clear Calc 134.44, Est GFR (MDRD) Af Amer 139, Est GFR (MDRD) Non-Af 115, BUN/Creatinine Ratio 17.2, Glucose 101, Calcium 8.0 L, Total Bilirubin 0.40, AST 18, ALT 26, Alkaline Phosphatase 78, Total Protein 6.6, Albumin 3.1 L, Globulin 3.5, Albumin/Globulin Ratio 0.9 Radiography Diagnostic Testing: Radiology Impression Abdomen/Pelvis CT 05/29/24 16:09 IMPRESSION: Ileus. Increase stool. Moderate hiatal hernia. Electronically Signed: Pierre Camargo MD at 17:31 EST Reading Location ID and State: [address] [place] [address] Tel , Service support , Abdomen CT 05/29/24 19:04 IMPRESSION: Ileus. Increase stool in the colon. Electronically Signed: Pierre Camargo MD at 22:28 EST Reading Location ID and State: [address] [place] Tel , Service support , D/C Instructions Discharge Diet: No restrictions DC O2, CPAP, BIPAP Needs Home O2 Discharge instructions: No Meaningful Use Info Meaningful Use Meaningful Use Diagnoses (Choose all that apply): None applicable Ischemic Stroke Statin Dosing Therapy Reference: STATIN DOSE THERAPY REFERENCE: * Patients > 75 years receive moderate or high dose statin therapy. * Patients 75 years or YOUNGER should receive HIGH intensity statin dose unless contraindicated. You will be required to document reason for non-treatment if statin daily dose does not meet guidelines. HIGH DOSE STATIN THERAPY DAILY Atorvastatin > than or = to 40 mg Rosuvastatin > than or = to 20 mg Amlodipine + Atorvastatin > than or = to 2.5/40 mg Ezetimibe + Simvastatin 10/80 mg Simvastatin 80mg Discharge Plan Admission Admit Date/Time: 05/29/24 23:07 Primary Reason for Your Visit: severe constipation. Attending Provider: Anuel Powell Primary Care Provider: Care Physician,Sunita Primary Consulting Providers: Shade Dominguez; Audrey Sawyer Instructions Additional Instructions / Restrictions: You had severe constipation. This may have been at least partial due to Kratom and I advise no further use of Kratom. Continue with your herbal laxative. You may take Dulcolax (bisacodyl) 5-10mg daily as needed for constipation. Discharge Orders/Prescriptions Prescriptions: Continued atorvastatin 40 mg tablet 40 mg PO DAILY sertraline 50 mg tablet 75 mg PO DAILY bupropion HCl 150 mg tablet extended release 24 hr 150 mg PO 1XD Referrals / Follow Up: Care Physician,Sunita Primary [Primary Care Provider] - NOT,DEFINED [Non-Staff] - Disposition Disposition (needs filled in before D/C Order can be placed): Home, Self Care Charges/Coding Visit Charges Inpatient E&M: 74321 Disch Hosp
--- NOTE | 2024-05-30 14:11 | CASEMGMT ---
Pt has an order for DC placed. RN CM to pt room at this time. PCP list offered but pt refuses and states that he is already established in [place]. Pt at bedside. Pt states that he is independent. 6-Click is 22. Pt denies home needs and states that he feels safe going home today. Pt denies further questions or concerns at this time.
== END 2024-05-30 14:35 | disposition home or self-care (01) ==
LOC: ED 17:57 → MS3 23:25
PROVIDERS: Admitting Provider Family Medicine; Emergency Provider Emergency Medicine
DX: K56.7 Ileus, unspecified (principal); E87.1 Hypo-osmolality and hyponatremia; K44.9 Diaphragmatic hernia without obstruction or gangrene; K59.01 Slow transit constipation; D64.9 Anemia, unspecified
CPT/HCPCS: 36415; 74176; 74177; 80053; 81001; 83605; 83690; 84145; 85025; 96365; 96366; 96375; 96376; 99221; 99285; Q9967; A4216; G0378; J2405

== ENCOUNTER 2024-09-18 08:44 | Day surgery (SDC) | payer OTHER, SELFPAY ==
[2024-09-18] VITALS (8 sets, daily range): BP systolic 93–148; BP diastolic 57–87; PULSE 57–71; RESP 16–18; TEMP 36.3–36.6; O2SAT 93–100; BMI 29.7
[2024-09-18] MEDS: Lactated Ringers 1,000 ML 15 ML IV (09:05)
--- NOTE | 2024-09-18 09:20 | PRE.ANES_ITS ---
ASA Classification* ASA Classification ASA Classification: 2 Assessment & Plan Anesthesia* Anesthesia Assessment Anesthesia Assessment: Discussed sedation and/or anesthesia options, risks, benefits, and alternatives with patient/parents/legal guardian/POA. Questions invited. The patient/parents/legal guardian/POA seems to understand and agrees to proceed with anesthesia plan. Reviewed the physical assessment, medical history, allergy history and patient home medications list prior to surgery/procedure/anesthetic and documented any changes. Performed airway and anesthesia risk assessments. Anesthesia Type Anesthesia Type: MAC History Source History Obtained from:: Patient and Chart Anesthesia Focused Assessment* Temperature: 97.3 F Pulse Rate: 71 Blood Pressure: 148/87 Respiratory Rate: 18 Pulse Ox: 99 Oxygen Delivery Method: Room Air Airway Assessment Mouth opens: >3 cm Mallampati Score: III Teeth Condition: Intact Neck Range of motion (ROM): Full ROM Focused Labs Anesthesia Preop lab: CBC WBC 8.2 K/mm3 (4.4-11.0) 05/30/24 05:06 05/30/24 RBC 4.30 M/mm3 (4.6-6.2) L 05/30/24 05:06 05/30/24 Hgb 11.6 g/dL (13.0-16.5) L 05/30/24 05:06 5 Hct 35.6 % (40-54) L 05/30/24 05:06 05/30/24 Plt Count 318 K/mm3 (150-450) 05/30/24 05:06 05/30/24 CHEMISTRY Potassium 3.6 mmol/L (3.5-5.1) 05/30/24 05:06 05/30/24 Sodium 137 mmol/L (136-145) 05/30/24 05:06 05/30/24 BUN 13 mg/dL (7-18) 05/30/24 05:06 05/30/24 Creatinine 0.76 mg/dL (0.70-1.30) 05/30/24 05:06 05/30/24 Glucose 101 mg/dL (74-106) 05/30/24 05:06 05/30/24 COAG Pre-Assessment Diagnosis/Proposed Procedure Planned Operative Procedure(s): EGD, COLONOSCOPY Anesthesia History 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 When Was Last Pacemaker Check QUESTION #4 FULL TEXT: You/Your Family Experience fever (hyperthermia) with Anesthesia Last Oral Intake Last Oral intake: Last Oral Intake NPO since 23:45 09/18/24 09:02 Meds taken in AM with sips of No 09/18/24 09:02 water? Meds patient instructed to take am of surgery PONV PONV - personnel security assistant: PONV - personnel security assistant Female No 09/16/24 10:32 HX of Motion Sickness No 09/16/24 10:32 HX of N/V After Surgery Yes 09/16/24 10:32 Non-Smoker No 09/16/24 10:32 Duration of Surgery greater No 09/16/24 10:32 than 60 minutes Number of Risk Factors 1 09/16/24 10:32 PONV Score Low Risk 09/16/24 10:32 Height & Weight Height & Weight: Anesthesia: Height & Weight Height 5 ft 9 in 09/18/24 09:02 Weight: 91.2 kg 09/18/24 09:02 Body Mass Index (BMI) 29.7 09/18/24 09:02 Respiratory Assessment Respiratory Assessment - personnel security assistant: Respiratory Tract Infection Hx - personnel security assistant Hx Respiratory Tract Infection No 09/16/24 10:32 STOP Sleep Apnea STOP Sleep Apnea - personnel security assistant: STOP Sleep Apnea - personnel security assistant Hx Hypertension No 09/16/24 10:32 Hx Sleep Apnea No 09/16/24 10:32 CPAP BIPAP Do you snore loudly (louder No 09/16/24 10:32 than talking or can be heard Do you often feel tired/ No 09/16/24 10:32 fatigued/ sleepy during daytime? Has anyone observed you stop No 09/16/24 10:32 breathing during sleep? STOP Results Negative 09/16/24 10:32 QUESTION #5 FULL TEXT : Do you snore loudly (louder than talking or can be heard through closed doors)? 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 Specify any problems Hx of Preganancy in last 3 N/A 09/16/24 10:32 Months Nurse Filling Out Transfusion MGRIFFITH 09/16/24 10:32 & Questions: Date: 09/16/24 09/16/24 10:32 Time: 10:35 09/16/24 10:32 Patient unable to answer at this time (ie. confused, unrespo /Reproduction History /Reproductive History - personnel security assistant: /Reproductive Hx- personnel security assistant Hx Now Gestational Age (in weeks): EDC: Hx Hx Para Hx Section SAB Active Medications Active Medications: Current Medications Generic Name Dose Route Start Last Admin Trade Name Freq PRN Reason Stop Dose Admin Lactated Ringer's 1,000 mls @ 15 mls/hr 09/18/24 09:00 09/18/24 09:05 IV 15 mls/hr .Q48H CAMILA Administration PFSH Medical History Wears glasses Anxiety High cholesterol Excessive bleeding Heartburn PONV (postoperative nausea and vomiting) Smoker Obesity Chronic constipation Home Medications ?Medication ?Instructions ?Recorded ?Last Taken ?Type atorvastatin 40 mg tablet 40 mg PO DAILY 05/30/24 Unkn own History sertraline 50 mg tablet 75 mg PO DAILY 05/30/24 Unkn own History ergocalciferol (vitamin D2) 50 mcg 50 mcg PO QDAY 04/0 1/25 Unknown History (2,000 unit) tablet Allergy/AdvReac Type Severity Reaction Status Date / Time No Known Allergies Allergy Verified 09/18/24 09:01 Family History Mother Heart disease Kidney disease Father Heart disease Kidney disease Surgical History H/O umbilical hernia repair History of inguinal hernia repair History of total replacement of right hip History of hip replacement History of hernia surgery Social History household members: spouse Smoking Status: Current some day smoker tobacco type: cigars alcohol intake: never substance use type: does not use Review of Systems (Anesthesia) ROS Narrative System reviewed and no additional complaints, except as documented.
--- NOTE | 2024-09-18 10:00 | EGD_PTH ---
PATIENT: INES BECERRIL LOC: EN U#:[id number] AGE/SX: 54/M ROOM: RE09/18/[address]: Dr. Shade Dominguez MD : 1970 BED: DIS: 09/18/2024 SPEC #: [id number] RECD: 09/18/24 14:12 STATUS: JIGNA FRANCOISE #: [id number] SIDNEY: 09/18/24 10:[address]: Shade Dominguez DEPT: SURGICAL PATHOLOGY RECD BY: Abdullahi Sidhu ENTERED: 09/18/24 14:36 SP TYPE: EGD BIOPSY OTHR DR: Dr. Lc Owens MD Tissues: A - Gastric mucous membrane B - Esophagus, NOS C - Esophagus, NOS D - Cecum, NOS Procedures: Immunohistochemical Stains Special Stain Group I PAS Stain (control) Surgery Specimen Level IV HEADER OPERATION: Colonoscopy with biopsy, EGD with biopsy, hemostasis PRE-OP DIAGNOSIS: Encounter for screening for malignant neoplasm of colon, hiatal hernia with GERD, anemia, chronic constipation TISSUE SUBMITTED: A- Gastric antrum biopsy, B- Distal esophagus biopsy, C- Mid esophagus biopsy,D- Cecum biopsy MICROSCOPIC DIAGNOSIS A. Stomach, gastric antrum, biopsy: * Oxyntic mucosa with features of reactive gastropathy. * IHC negative for H pylori irganisms. B. Esophagus, distal, biopsy: * Squamous mucosa with mild reactive change. * Columnar mucosa with goblet cell metaplasia - see note. * Negative for dysplasia. * Note: The diagnosis depends on the location of the biopsy and the extent of the mucosal irregularity. If the biopsy originates from the tubular esophagus and the mucosal irregularity extends at least 1 cm above the top of the gastric folds, this represents Best mucosa. If the biopsy originates from the gastric cardia and/or the mucosal irregularity is less than 1 cm in extent, this represents intestinal metaplasia. C. Esophagus, mid, plaque, biopsy: * Squamous mucosa negative for eosinophils. * PASD stain highlights rare extracellular yeast without any hyphal forms, favoring oral contamination. D. Colon, cecum, biopsy: * Small benign mucosal lymphoid aggregate. * Melanosis coli. MICROSCOPIC DESCRIPTION Slides are reviewed. All matched controls reacted appropriately. These tests were developed and their performance characteristics determined by [facility]. They may not have been cleared or approved by the U.S. Food and Drug Administration. The FDA has determined that such clearance or approval is not necessary.? The above immunohistochemical/dualISH?markers are ordered and reviewed by the Pathologist. GROSS DESCRIPTION A. Received in formalin in a container labeled with the patient's name, date of , and gastric antrum biopsy is a 0.3 x 0.3 x 0.3 cm fragment of geiger-pink mucosal tissue. Submitted in toto in A1. B. Received in formalin in a container labeled with the patient's name, date of , and Distal esophagus biopsy are multiple white-pink fragments of mucosal tissue measuring 1.0 x 0.6 x 0.2 cm in aggregate. Submitted in toto in B1. C. Received in formalin in a container labeled with the patient's name, date of , and mid esophagus plaque are multiple small geiger-pink fragments of mucosal tissue measuring 0.7 x 0.4 x 0.2 cm in aggregate. Submitted in toto in C1. D. Received in formalin in a container labeled with the patient's name, date of , and cecum biopsy are 2 geiger-pink fragments of mucosal tissue each measuring 0.3 x 0.3 x 0.2 cm. Submitted in toto in D1. [facility] 09-18-2024 CPT:38484i1,12950, 45456
--- NOTE | 2024-09-18 10:56 | HP.PCM_ITS ---
History and Physical Date of Admission: 09/18/24 Date of Service: 08/06/24 MR#: [id number] Acct: [id number] Name: INES BECERRIL Rep #: [id number] : 1970 Provider: Dr. Shade Domingeuz MD Age/Sex: 53/M Location: [facility] Status: Signed Intake Vital Signs 05/30/2499:12 08/06/2506:49 Height 5 ft 9 in 5 ft 9 in Weight: 212 lb BMI 31.3 BP 118/62 Blood Pressure Location Rt brachial Position Sitting Respiration 17 Pulse 65 Pulse Source Monitor Pulse Oximetry (%) 99 Oxygen Delivery Method room air Intake Visit Reasons: [facility] FU,DISCUSS COLONOSCOPY Chief Complaint: [facility] fu/ discuss colonoscopy Is patient in pain?: No Allergies No Known Allergies Allergy (Verified 08/06/24 07:50) Medications ?Medication ?Instructions ?Recorded ?Confirmed ?Type atorvastatin 40 mg tablet 40 mg PO DAILY 05/30/24 08/06/24 History sertraline 50 mg tablet 75 mg PO DAILY 05/30/24 08/06/24 History ergocalciferol (vitamin D2) 50 mcg 50 mcg PO QDAY 08/06/24 08/06/24 History (2,000 unit) tablet PFSH Medical History (Updated 08/06/24 @ 14:[address] Shade Dominguez MD) Obesity Chronic constipation Surgical History H/O umbilical hernia repair History of inguinal hernia repair History of total replacement of right hip History of hip replacement History of hernia surgery Family History Mother Heart disease Kidney diseaseFather Heart disease Kidney disease Social History (Updated 08/06/24 @ 07:49 by Jia Yin) household members: spouse Smoking Status: Former smoker alcohol intake: never substance use type: does not use HPI HPI HPI: Patient is a 53-year-old male who makes follow-up after recent inpatient visit for management of a ileus. He openly confesses that he messed up with all the supplements he was taking. He also reports not able to remember everything that we had discussed and simply wanted to follow-up. He confirms he has had no further abdominal pain. He describes his bowel movements as occurring almost daily. He estimates a frequency of 5 times per week. His toilet time is kept to a minimum and estimates it to be approximately just 10 seconds. He does acknowledge some straining. He has not experienced any blood. Concerning his supplements he confesses that he continues to struggle to wean off of kratom but is now down to a quarter of what he had been on. He reports initially using this supplement as a means of curbing his urged to drink and smoke. Patient has no prior history of colonoscopy. In addition to noting significant stool burden and evidence of ileus radiology made mention of a small hiatal hernia patient's CT imaging. Patient states that he does have a history of heartburn and reflux, but when pressed specifies that it is mostly heartburn. He describes experiencing this when, specifically, he mixes taking coffee with his Zoloft. Even with these medications he would experience symptoms within frequently for a incidence of no more than 1 time per month. Outside of this he states that he does not have any unusual food triggers and specifically relates that he can tolerate [place] foods. He describes taking dinner between 5 and 6:00 in the evening and then return to bed at approximately 1030. He does prop his head when he sleeps. Patient has some evidence of anemia with labs but denies any fatigue or lightheadedness. [] ROS General General: No weight change, appetite, fatigue, colon cancer, breast cancer or weakness HEENT HEENT: No difficulty swallowing, eye injury, eye surgery, swollen glands or hoarseness Endo Endocrine: No thyroid disease, diabetes mellitus, thyroid cancer, Hair loss, heat intolerance or cold intolerance Skin Skin: No rash or changing moles Musc Musculoskeletal: No back problems, arthritis, rheumatoid arthritis, gout or joint pain Cardio Cardiovascular: No murmur, pacemaker, heart disease, atrial fibrillation, high blood pressure, heart attack, heart stent, palpitations, shortness of breath with exertion or chest pain Psych Psychiatric: Yes anxiety; No depression or hearing voices Resp Respiratory: No shortness of breath, No sleep apnea, No cough, No COPD, No asthma, No emphysema and No wheezing Gastro Gastrointestinal: No abdominal pain, No nausea or vomiting, No diarrhea, No constipation, No blood in stool, No acid reflux, No hemorrhoids, No ulcers, No gallbladder problem and No black,tarry stools Christopher Hematologic: No blood thinners, No blood disorders, No bleeding, No anemia and No blood clots Neuro Neurologic: No system reviewed and no additional complaints, except as documented, No as per HPI, No abnormal gait, No abnormal hearing, No abnormal movements, No abnormal speech, No behavioral changes, No burning sensations, No confusion, No convulsions, No disequilibrium, No dizziness, No localized weakness, No frequent falls, No headache(s), No lack of coordination, No loss of vision, No memory loss, No numbness, No other visual disturbances, No radicular pain, No restless legs, No sensory deficit, No syncope, No tingling, No tremor(s), No weakness and No other Exam Const General: cooperative Orientation: alert, awake and oriented x3 Resp Effort & Inspection: normal respiratory effort GI Other: No scars, no visible herniation, nondistended, soft, nontender to palpation x 4 quadrants Assessment and Plan Assessment and Plan (1) Encounter for screening for malignant neoplasm of colon: Status: Acute Comment: Patient 53-year-old male who makes follow-up after recent inpatient stay that was occasioned by experience of ileus. It is likely that this condition was precipitated by use of kratom supplement which apparently shows affinity for opiate receptors in the bowel. Patient has made strides to wean from this supplement and has subsequently developed normal bowel habits without any recurrence of his abdominal discomfort. Indeed, his abdominal exam is benign today. However, patient is now 53 without prior history of screening colonoscopy so I recommended we complete that screening before any more time is allowed labs. Patient in agreement. Recommend 2-day bowel prep. Patient advised he will need a [employer]dl company flatbed driver the day of the procedure Plan: Plan will be to complete colonoscopy on first mutually agreeable date under local MAC. Pre-procedure prep discussed and paper instructions provided. Patient is also made aware that he will need to have a [employer] company flatbed driver with him the day of the procedure. (2) Hiatal hernia with GERD: Status: Acute Comment: Incidental finding on recent CT imaging, however, patient does endorse history of heartburn as well. Between these 2 clinical findings and evidence of anemia recommend including EGD with plans for colonoscopy. Procedure described in detail and will plan to closely examine the gastroesophageal junction as well as for any sources of potential occult blood loss with ulcer disease. Plan: EGD with colonoscopy (3) Anemia: Status: Acute Comment: Asymptomatic but noted with patient's laboratories on hospital intake. Hemoglobin noted to be 11.6 after rehydration. Recommending both EGD and colonoscopy to investigate for possible sources. Plan: EGD and colonoscopy (4) Chronic constipation: Status: Chronic Comment: At least in part related to patient's supplement use. Patient reporting near daily bowel movements having stopped this supplement. Patient encouraged to continue to wean his dependence. Will require 2-day bowel prep for colonoscopy given his history. I have examined the patient and the H&P has been reviewed. There are no clinical changes since date of exam. Patient states that he has experienced regular bowel function since remaining abstinent from his previous medication. He denies any observation of either hematochezia or melena. He also denies any symptoms of anemia. He confirms that he completed prep for today's procedure and he output is largely clear with minimal sediment. With this reporting and his benign exam we will proceed to the endoscopy suite for planned EGD and colonoscopy as given in greater detail above.
--- NOTE | 2024-09-18 12:30 | PCM.POST.ANE ---
Anesthesia: Postop Eval I Current Vital Signs Temperature: 97.9 F Pulse Rate: 69 Blood Pressure: 108/57 Respiratory Rate: 16 Pulse Ox: 100 Oxygen Delivery Method: Room Air Assessment Airway patent: Yes Spontaneous unlabored respirations: Yes Mental status: Awake and Calm nausea: No Vomiting: No Anesthesia Complication: No Fluid Hydration Crystalloid volume administer (ml): 900 Total IV fluid infused: 900 Progress Note Anesthesia document: Postop Eval 1 completed: Yes
--- NOTE | 2024-09-18 12:32 | OP.EGD_ITS ---
Patient Name: Roger Mcknight Procedure Date: 09/18/2024 10:54 AM Date of : 1970 Age: 54 Procedure: Upper GI endoscopy Indications: Iron deficiency anemia, Suspected esophageal reflux Providers: Shade Dominguez MD Referring MD: Lc Owens Md Medicines: See the Anesthesia note for documentation of the administered medications Patient Profile: Refer to note in patient chart for documentation of history and physical. Complications: No immediate complications. Estimated blood loss: Minimal. Procedure: Pre-Anesthesia Assessment: - The heart rate, respiratory rate, oxygen saturations, blood pressure, adequacy of pulmonary ventilation, and response to care were monitored throughout the procedure. After obtaining informed consent, the endoscope was passed under direct vision. Throughout the procedure, the patient's blood pressure, pulse, and oxygen saturations were monitored continuously. The gastroscope was introduced through the mouth, and advanced to the second part of duodenum. The upper GI endoscopy was somewhat difficult due to the patient's agitation. Successful completion of the procedure was aided by increasing the dose of sedation medication. The patient tolerated the procedure fairly well. Scope In: 11:06:59 AM Scope Out: 11:35:21 AM Total Procedure Duration Time 0 hours 28 minutes 22 seconds Findings: No gross lesions were noted in the entire examined duodenum. No biopsies or other specimens were collected for this exam. Localized mild inflammation characterized by erythema was found in the gastric antrum. Biopsies were taken with a cold forceps for histology. Estimated blood loss was minimal. A medium-sized hiatal hernia was present. No biopsies or other specimens were collected for this exam. The Z-line was variable and was found 39 cm from the incisors. No biopsies or other specimens were collected for this exam. Two tongues of salmon-colored mucosa were present from 30 to 34 cm. No other visible abnormalities were present. The maximum longitudinal extent of these esophageal mucosal changes was 5 cm in length. Biopsies were taken with a cold forceps for histology. Estimated blood loss: 2 mL requiring treatment with coagulation. Multiple 2 to 4 mm plaques were found in the middle third of the esophagus. Estimated blood loss: 1 mL requiring treatment with coagulation. The exam was otherwise without abnormality. Impression: - No gross lesions in the entire examined duodenum. No specimens collected. - Gastritis. Biopsied. - Medium-sized hiatal hernia. No specimens collected. - Z-line variable, 39 cm from the incisors. No specimens collected. - [place]-colored mucosa suspicious for long-segment Best's esophagus. Biopsied. - Multiple plaques in the middle third of the esophagus. - The examination was otherwise normal. Recommendation: - Discharge patient to home (via wheelchair). - Soft diet today. - No aspirin, ibuprofen, naproxen, or other non-steroidal anti-inflammatory drugs for 2 days after biopsy. - Use Protonix (pantoprazole) 40 mg PO daily today. - Await pathology results. - Repeat upper endoscopy for surveillance based on pathology results. - Telephone my office for pathology results in 1 week. Procedure Code(s): --- Professional --- 50986, Esophagogastroduodenoscopy, flexible, transoral; with biopsy, single or multiple Diagnosis Code(s): --- Professional --- K22.89, Other specified disease of esophagus K29.70, Gastritis, unspecified, without bleeding K44.9, Diaphragmatic hernia without obstruction or gangrene D50.9, Iron deficiency anemia, unspecified CPT copyright 2021 [employer]. All rights reserved. The codes documented in this report are preliminary and upon ship painter helper review may be revised to meet current compliance requirements. Shade Dominguez MD 09/18/2024 12:32:01 PM This report has been signed electronically. Number of Addenda: 0 Note Initiated On: 09/18/2024 10:54 AM
--- NOTE | 2024-09-18 12:32 | OP.CCLET_ITS ---
09/18/2024 Lc Owens Md Re : Upper GI endoscopy procedure for Roger Mcknight Dear Roman This procedure was performed on Wednesday, September 18, 2024. My impressions and recommendations are as follows: Impressions : - No gross lesions in the entire examined duodenum. No specimens collected. - Gastritis. Biopsied. - Medium-sized hiatal hernia. No specimens collected. - Z-line variable, 39 cm from the incisors. No specimens collected. - [place]-colored mucosa suspicious for long-segment Best's esophagus. Biopsied. - Multiple plaques in the middle third of the esophagus. - The examination was otherwise normal. Recommendations : - Discharge patient to home (via wheelchair). - Soft diet today. - No aspirin, ibuprofen, naproxen, or other non-steroidal anti-inflammatory drugs for 2 days after biopsy. - Use Protonix (pantoprazole) 40 mg PO daily today. - Await pathology results. - Repeat upper endoscopy for surveillance based on pathology results. - Telephone my office for pathology results in 1 week. My findings are described in the full procedure note, which is enclosed. If I can be of further assistance, please feel free to contact me at Doctor phone number(s): , Work: . Sincerely, Shade Dominguez MD 09/18/2024 12:32:01 PM This report has been signed electronically.
--- NOTE | 2024-09-18 12:38 | POSTOPAN2_ITS ---
Anesthesia Postop Eval I Sum Postop Eval Completion status Anesthesia document: Postop Eval 1 completed: Yes Anesthesia Postop Eval I Summary Anesthesia Postop Eval I Summary: Anesthesia Postop Eval I: Assessment Summary Airway patent Yes 09/18/24 12:31 [email or web address] Spontaneous unlabored Yes 09/18/24 12:31 [email or web address] respirations Mental status Awake,Calm 09/18/24 12:31 [email or web address] nausea No 09/18/24 12:31 [email or web address] Vomiting No 09/18/24 12:31 [email or web address] Anesthesia Postop Eval I: Fluid Summary Crystalloid volume administer 900 09/18/24 12:31 [email or web address] (ml) Colloids volume administered ( ml) Blood Product volume administered (ml) Total IV fluid infused 900 09/18/24 12:31 [email or web address] Anesthesia Postop Eval I: Summary Notes Anesthesia Complication No 09/18/24 12:31 [email or web address] Anesthesia Complication Comment: Post-operative progress note Anesthesia: Postop Eval II Evaluation Mental status: Awake Pain Level: 0 nausea: No Vomiting: No
--- NOTE | 2024-09-18 12:38 | PCM.POSTANE2 ---
Anesthesia Postop Eval I Sum Postop Eval Completion status Anesthesia document: Postop Eval 1 completed: Yes Anesthesia Postop Eval I Summary Anesthesia Postop Eval I Summary: Anesthesia Postop Eval I: Assessment Summary Airway patent Yes 09/18/24 12:31 [email or web address] Spontaneous unlabored Yes 09/18/24 12:31 [email or web address] respirations Mental status Awake,Calm 09/18/24 12:31 [email or web address] nausea No 09/18/24 12:31 [email or web address] Vomiting No 09/18/24 12:31 [email or web address] Anesthesia Postop Eval I: Fluid Summary Crystalloid volume administer 900 09/18/24 12:31 [email or web address] (ml) Colloids volume administered ( ml) Blood Product volume administered (ml) Total IV fluid infused 900 09/18/24 12:31 [email or web address] Anesthesia Postop Eval I: Summary Notes Anesthesia Complication No 09/18/24 12:31 [email or web address] Anesthesia Complication Comment: Post-operative progress note Anesthesia: Postop Eval II Evaluation Mental status: Awake Pain Level: 0 nausea: No Vomiting: No
--- NOTE | 2024-09-18 12:43 | OP.COLON_ITS ---
Patient Name: Roger Mcknight Procedure Date: 09/18/2024 11:38 AM Date of : 1970 Age: 54 Procedure: Colonoscopy Indications: Constipation Providers: Shade Dominguez MD Referring MD: Lc Owens Md Medicines: See the Anesthesia note for documentation of the administered medications Patient Profile: Refer to note in patient chart for documentation of history and physical. Last Colonoscopy: none. The patient's first colonoscopy is today. Complications: No immediate complications. Estimated blood loss: Minimal. Procedure: Pre-Anesthesia Assessment: - The heart rate, respiratory rate, oxygen saturations, blood pressure, adequacy of pulmonary ventilation, and response to care were monitored throughout the procedure. After I obtained informed consent, the scope was passed under direct vision. Throughout the procedure, the patient's blood pressure, pulse, and oxygen saturations were monitored continuously. The Colonoscope was introduced through the anus and advanced to the cecum, identified by the appendiceal orifice, ileocecal valve and palpation. The colonoscopy was unusually difficult due to poor bowel prep with stool present. Successful completion of the procedure was aided by applying abdominal pressure and lavage. The patient tolerated the procedure fairly well. The quality of the bowel preparation was poor. Scope In: 11:39:01 AM Scope Withdrawal Time 0 hours 19 minutes 25 seconds Scope Out: 12:11:28 PM Total Procedure Duration Time 0 hours 32 minutes 27 seconds Findings: The perianal and digital rectal examinations were normal. A large amount of stool was found in the entire colon, interfering with visualization. Lavage of the area was performed using a small amount of sterile water, resulting in incomplete clearance with fair visualization. The retroflexed view of the distal rectum and anal verge was normal and showed no anal or rectal abnormalities. No biopsies or other specimens were collected for this exam. Estimated blood loss: none. Localized pseudopolyps were found in the cecum. Biopsies were taken with a cold forceps for histology. Estimated blood loss was minimal. Impression: - Preparation of the colon was poor. - Stool in the entire examined colon. - The distal rectum and anal verge are normal on retroflexion view. - Pseudopolyps in the cecum. Biopsied. Recommendation: - Discharge patient to home (via wheelchair). - Resume previous diet today. - Continue present medications. - Repeat colonoscopy in 1 year because the bowel preparation was suboptimal. - Telephone my office for study results in 1 week. Procedure Code(s): --- Professional --- 01688, Colonoscopy, flexible; with biopsy, single or multiple Diagnosis Code(s): --- Professional --- K51.40, Inflammatory polyps of colon without complications K59.00, Constipation, unspecified CPT copyright 2021 [employer]. All rights reserved. The codes documented in this report are preliminary and upon manager cardiac review may be revised to meet current compliance requirements. Shade Dominguez MD 09/18/2024 12:42:46 PM This report has been signed electronically. Number of Addenda: 0 Note Initiated On: 09/18/2024 11:38 AM
--- NOTE | 2024-09-18 12:43 | OP.CCLET_ITS ---
09/18/2024 Lc Owens Md Re : Colonoscopy procedure for Roger Mcknight Dear Roman This procedure was performed on Wednesday, September 18, 2024. My impressions and recommendations are as follows: Impressions : - Preparation of the colon was poor. - Stool in the entire examined colon. - The distal rectum and anal verge are normal on retroflexion view. - Pseudopolyps in the cecum. Biopsied. Recommendations : - Discharge patient to home (via wheelchair). - Resume previous diet today. - Continue present medications. - Repeat colonoscopy in 1 year because the bowel preparation was suboptimal. - Telephone my office for study results in 1 week. My findings are described in the full procedure note, which is enclosed. If I can be of further assistance, please feel free to contact me at Doctor phone number(s): , Work: . Sincerely, Shade Dominguez MD 09/18/2024 12:42:46 PM This report has been signed electronically.
== END 2024-09-18 13:23 | disposition home or self-care (01) ==
LOC: EN 08:45 → AC 08:46
PROVIDERS: PCP Family Medicine; Referring Provider Family Medicine; Visit Provider Surgery
PROC: 0DJD8ZZ Inspection of Lower Intestinal Tract, Via Natural or Artificial Opening Endoscopic (ICD-10-PCS; CPT 45378; principal; 2024-09-18 09:55)
DX: Z12.11 Encounter for screening for malignant neoplasm of colon (principal); K44.9 Diaphragmatic hernia without obstruction or gangrene; K63.5 Polyp of colon; K63.89 Other specified diseases of intestine; K29.70 Gastritis, unspecified, without bleeding; D50.9 Iron deficiency anemia, unspecified; K31.89 Other diseases of stomach and duodenum; K21.9 Gastro-esophageal reflux disease without esophagitis; Z79.899 Other long term (current) drug therapy; Z87.891 Personal history of nicotine dependence
CPT/HCPCS: 43239; 45380; 88305; 88312; 88342; C1889